=== PATIENT | female | born 1935 | race Caucasian/White ===

== ENCOUNTER 2017-07-07 07:10 | Inpatient (IN) | payer BC ==
[2017-06-28 12:06] VITALS: BMI 26.3
[2017-07-07] MEDS ORDERED: THROMBIN (BOVINE) 5,000 UNIT VIAL TP ONE (08:56)
[2017-07-07] MEDS ORDERED: BUPIVACAINE HCL/PF 2.5 MG/ML - 30 ML VIAL IJ ONE ×2 (09:02→09:04)
--- NOTE | 2017-07-07 09:02 | HP ---
History & Physical Update - History History: No Change - Physical Physical: No Change - Assessment Assessment: No Change - Plan Plan: No Change (Patient cleared for surgery by pcp on 06/21/17)
[2017-07-07] MEDS ORDERED: LIDOCAINE 1%/EPI 1:100000 (20 ML MULTI DOSE VIAL) ONE (09:04)
[2017-07-07] MEDS ORDERED: MIDAZOLAM HCL 2 MG/2 ML SINGLE DOSE VIAL ONE ×2 (09:09→10:42)
[2017-07-07] MEDS ORDERED: DEXAMETHASONE SOD PHOSPHATE 4 MG/1 ML VIAL ONE (09:10)
[2017-07-07] MEDS ORDERED: ONDANSETRON 4 MG/2 ML VIAL ONE ×2 (09:10→12:29)
[2017-07-07] MEDS ORDERED: ceFAZolin SODIUM 1 GM VIAL ONE (09:10)
[2017-07-07] MEDS ORDERED: BUPIVACAINE HCL/PF 0.5% (5MG/ML) 10 ML VIAL ONE (09:14)
[2017-07-07] MEDS ORDERED: LIDOCAINE 1%/EPI 1:100000 (50 ML MULTI DOSE VIAL) INF ONE (10:00)
[2017-07-07] MEDS ORDERED: BUPIVACAINE HCL/PF 0.25% (2.5MG/ML) 10 ML VIAL IJ ONE (10:15)
[2017-07-07] MEDS ORDERED: ONDANSETRON 4 MG/2 ML VIAL IVPUSH PRN (10:50)
[2017-07-07] MEDS ORDERED: LACTATED RINGERS SOLUTION 1,000 ML IV SCH ×2 (11:00→12:45)
[2017-07-07] MEDS ORDERED: LABETALOL HCL 5 MG/1 ML (100MG/20 ML VIAL) ONE (11:31)
[2017-07-07] MEDS ORDERED: diazePAM CARPU-JECT 10 MG/2 ML DISP.SYRIN IVPUSH PRN (12:43)
[2017-07-07] MEDS ORDERED: ONDANSETRON 4 MG/2 ML VIAL IVPB PRN (12:43)
--- NOTE | 2017-07-07 12:43 | OP ---
Operative Note - Note: Operative Date: 07/07/17 Pre-Operative Diagnosis: spondylolisthesis Operation: posterior lumbar decompression/fusion/instrumentation of L4-L5, transformanial lumbar interbody fuison L4-5 with allograft and neuromonitoring Surgeon: Roger Grant Building Maintenance Repairer: Lalitha Parekh Anesthesiologist/OCCUPATIONAL HEALTH SPECIALIST: Fe Beatty Anesthesia: Spinal Estimated Blood Loss (mls): 30 Fluid Volume Replaced (mls): 1,400 Operative Report Dictated: Yes
--- NOTE | 2017-07-07 13:27 | SURG ---
Surgery Supervisor Word Processing Note Supervisor Word Processing: Lalitha Parekh PA-C Date of Service: 07/07/17 Diagnosis: spondylolisthesis Procedure: posterior lumbar decompression/fusion/instrumentation of L4-L5, transformanial lumbar interbody fuison L4-5 with allograft and neuromonitoring I was present for the entirety of the operative procedure. For further detail, please refer to operative report. Visit type - Case Type Case Type: Scheduled Admission - Emergency Emergency Visit: No - New patient This patient is new to me today: Yes Date on this admission: 07/07/17 - Critical Care Critical Care patient: No
[2017-07-07] MEDS ORDERED: ACETAMINOPHEN 325 MG TABLET (FP) ONE (13:41)
[2017-07-07] MEDS ORDERED: traMADol HCL 50 MG TABLET ONE (13:42)
[2017-07-07] MEDS: ACETAMINOPHEN 325 MG TABLET (FP) PO SCH ×3 (13:54→20:34)
[2017-07-07] MEDS: traMADol HCL 50 MG TABLET PO SCH ×3 (13:54→20:34)
--- NOTE | 2017-07-07 16:19 | OP ---
DATE OF OPERATION: 07/07/2017 PREOPERATIVE DIAGNOSES: 1. Spondylolisthesis L4-5. 2. Spinal stenosis. POSTOPERATIVE DIAGNOSES: 1. Spondylolisthesis L4-5. 2. Spinal stenosis. PROCEDURE PERFORMED: 1. Transforaminal lumbar interbody fusion. 2. Placement of instrumentation. 3. Hemilaminectomy. SURGEON: Roger Grant MD CERTIFIED MEDICATION TECHNICIAN: GILSON Silvestre. ESTIMATED BLOOD LOSS: 50 mL. INTRAVENOUS FLUIDS: Per anesthesia. COMPLICATIONS: None. DISPOSITION: The patient was brought to the PACU in stable condition. INDICATIONS FOR SURGERY: Ms. Boswell is an 82-year-old female who has been suffering from pain from her back down to her legs. X-rays and MRI were complicated. It was noted that she had spondylolisthesis at L4-5 contributing to a stenosis at that level. She had gone through an exhaustive course of treatment for this which included medications, physical therapy, as well as injections. Unfortunately, her pain continued to persist in spite of all this. At this point the risks benefits, and alternatives were discussed and the patient consented to surgery, DESCRIPTION F PROCEDURE: The patient was brought to the operating room by the anesthesia staff. After appropriate patient identification was performed spinal anesthesia was given. The patient was placed prone on to the OR table. She was able to position herself to avoid all bony prominences. The C-arm was brought in and the L4 and L5 pedicles were marked off. Then 10 mL of lidocaine with epinephrine was injected into her back at this time. Her back was prepped and draped in a sterile manner. At this point, a time-out was completed. Incision was made bilaterally over the L4-L5 pedicles. Dissection was carried down to the fascia and the fascia was then split open at this time. Trocars were advanced to above the L4 and L5 pedicles. Through the trocars, wire was inserted. Over the wire a tap was performed and the screws were inserted. On the left hand side retractor blades were set up to expose the L4-5 facet joint. The facet joint was removed. The disc was entered using a series of pituitaries, Kerrisons, and curettes. A discectomy was completed. The endplates were decorticated at this t time. Bone graft was laid down. A cage-filled bone graft was placed in. Tulip heads were placed over the screws. A chely was measured and placed in. Caps were placed on. Compression and final tightening was performed. On the right hand side a chely was measured and placed in. The caps were placed on. Compression was applied. AP and lateral x-rays confirmed the instrumentation to be in good condition. All bleeding was well controlled at this time. The fascia was closed with a No. 1 Vicryl suture. Exparel was injected. The subcutaneous tissues were closed with 2-0 Vicryl. The skin was closed with 3-0 Monocryl suture. Dermabond was applied. Steri-Strips were applied. Sterile dressing was applied. The patient was placed supine on the OR bed and brought to the PACU in stable condition. Sandie VALENCIA/[id number]
[2017-07-07] MEDS: CEFAZOLIN 1 GM/D5W 50 ML IVPB SCH (18:32)
[2017-07-07] MEDS: morphine CARPU-JECT 2 MG/1 ML DISP.SYRIN IVPUSH PRN (19:33)
[2017-07-07] MEDS: TIMOLOL 0.5% OPHTHALMIC SOL 5 ML BOTTLE OS SCH (21:05)
[2017-07-07] MEDS ORDERED: LATANOPROST 0.005% OPHTH SOLN 2.5ML BOTTLE OS SCH (22:00)
[2017-07-07] MEDS ORDERED: ATORVASTATIN CA 40 MG TABLET (FP) PO SCH (22:00)
[2017-07-07] MEDS ORDERED: diazePAM 2 MG TABLET PO SCH (22:00)
[2017-07-08] MEDS: CEFAZOLIN 1 GM/D5W 50 ML IVPB SCH (01:36)
[2017-07-08] MEDS: ACETAMINOPHEN 325 MG TABLET (FP) PO SCH ×3 (02:14→13:36)
[2017-07-08] MEDS: traMADol HCL 50 MG TABLET PO SCH ×3 (02:14→13:37)
[2017-07-08] MEDS: morphine CARPU-JECT 2 MG/1 ML DISP.SYRIN IVPUSH PRN (06:32)
[2017-07-08] MEDS ORDERED: LEVOTHYROXINE NA 75 MCG TABLET (FP) PO SCH (07:00)
[2017-07-08 08:01] LABS: MCH 27.5 pg (25.7-33.7); MCHC 32.3 g/dl (32.0-36.0); MEAN CELL VOLUME 85.1 fl (80-96); MEAN PLT VOLUME 9.1 fl (7.5-11.1); PLATELET COUNT 170 K/MM3 (134-434); RDW 13.9 % (11.6-15.6); WHITE BLOOD COUNT 9.6 K/mm3 (4.0-10.8)
[2017-07-08] MEDS ORDERED: KETOROLAC TROMETHAMINE 15 MG/ML VIAL IVPUSH ONE (08:14)
[2017-07-08 08:23] LABS: ANION GAP 6 (8-16); CALCIUM 8.3 mg/dl (8.4-10.2); CO2 26 mmol/L (22-28); GLUCOSE,RANDOM 135 mg/dl (74-106)
--- NOTE | 2017-07-08 08:36 | PN ---
Progress Note (short form) - Note Progress Note: Pt states that she is having back pain at her incisional site. No leg/numbness to her lower extremities. OOB to chair/bedside commode with assistance. Vital Signs Period Temp Pulse Resp BP Sys/Malik Pulse Ox Last 24 Hr 97.8 F-99.1 F 71-92 13-25 133-176/46-100 93-100 GEN: A&0x3, NAD CV: RRR Lungs: CTA b/l ABD: soft, non-distended, non-tender LE: no calf tendnerness or swelling noted b/l. SCDs in place. Neuro: 5/5 dorsi/plantar/EHL flexion Back:dressing changed, quarter sized amount of blood on dressing(changed at 2 am because of some bloody drainage to the incision) small amount of ecchymosis to the left incision with dried blood on the steri-strips. All steri-strips intact, no active bleeding to both incisions. CBC, BMP 07/08/17 07:45 07/08/17 07:45 A/P: 82 yo female s/p Lumbar fusion of L4-L5, POD#1 Pt having pain this am, willl add toradol x1 for better pain control. Continue with ultram/tylenol scheduled for pain. Will change valium to prn as needed, which may also help with her pain possible spasm symptoms Awaiting PT consult to assess possible discharge needs Lumbar xray today S/w social media developer regarding discharge planning, she has been in contact with the anita daughter.
[2017-07-08] MEDS ORDERED: diazePAM 2 MG TABLET PO PRN (08:37)
[2017-07-08] MEDS ORDERED: HYDROCHLOROTHIAZIDE 12.5 MG CAPSULE (FP) PO SCH (10:00)
[2017-07-08] MEDS ORDERED: LOSARTAN POTASSIUM 50 MG TABLET (FP) PO SCH (10:00)
[2017-07-08] MEDS ORDERED: PATIENT'S OWN MEDICATION (NON-FORMULARY) (Losartan/Hydrochlorothiazide [Losartan-Hctz 100- PO SCH (10:00)
[2017-07-08] MEDS ORDERED: UBIDECARENONE 200 MG PO SCH (10:00)
[2017-07-08] MEDS: TIMOLOL 0.5% OPHTHALMIC SOL 5 ML BOTTLE OS SCH (10:01)
[2017-07-08 10:14] LABS: CREATININE 0.8 mg/dl (0.6-1.3)
--- NOTE | 2017-07-08 10:42 | PN ---
Progress Note (short form) - Note Progress Note: ANESTHESIA POSTOP: 82 yo female, POD #1 from lumbar fusion. Patient doing well. Ambulating. Tolerating PO. No nausea. Pain adequately controlled.
[2017-07-08] MEDS ORDERED: DOCUSATE SODIUM 100 MG CAPSULE (FP) PO PRN (13:54)
[2017-07-08 14:04] VITALS: BP 112/47; PULSE 76; TEMP 98.9
--- NOTE | 2017-07-08 15:38 | DS ---
"Physical Examination Vital Signs: Vital Signs Temperature 98.9 F 07/08/17 14:03 Pulse Rate 76 07/08/17 14:03 Respiratory Rate 16 07/08/17 14:03 Blood Pressure 112/47 07/08/17 14:03 O2 Sat by Pulse Oximetry (%) 99 07/08/17 14:03 Constitutional: Yes: Calm Cardiovascular: Yes: WNL, Regular Rate and Rhythm Respiratory: Yes: WNL, Regular, CTA Bilaterally Gastrointestinal: Yes: WNL, Normal Bowel Sounds, Soft Extremities: Yes: WNL. No: Calf Tenderness Edema: No Peripheral Pulses WNL: Yes Peripheral Pulses: Left Doralis Pedis: 2+, Right Dorsalis Pedis: 2+ Wound/Incision: Yes: Clean/Dry, Steri Strips (intact), Other (mild ecchymosis to left incision. No masses/soft.) Neurological: Yes: WNL, Alert, Oriented ...Motor Strength: WNL, LUE, LLE, RUE, RLE Psychiatric: Yes: WNL, Alert, Oriented Labs: CBC, BMP 07/08/17 07:45 07/08/17 07:45 Discharge Summary Reason For Visit: SPONDYLOLISTHESIS Condition: Stable - Instructions Diet, Activity, Other Instructions: Dr. Grant's Discharge Instructions Dear Rosi, Regular diet as tolerated. No bending and or twisting at the waist. No lifting greater than 5 pounds. Follow-up with your surgeon in two weeks. Keep area clean and dry. May remove dressing in two (2) days and replace with clean gauze and occlusive dressing such as a tegaderm. NO BATHS. You may shower starting two (2) days after your surgery. When showering, leave the occlusive(plastic) dressing in place and change if it appears wet. Avoid direct water stream onto your incision. If you develop fever, drainage from your incision please call your surgeon. ZAFAR WHITE LEAD FILTERER This report was requested by: Eric Jauregui | Reference #: [id number] Follow-up Referred to following clinics/specialists for follow-up care: Roger Grant MD [facility]/[address], [address] [place] [id number] [phone] Disposition: [facility] - Home Medications Comprehensive Discharge Medication List: Ambulatory Orders Aspirin [ASA -] 81 mg PO DAILY 06/28/17 Atorvastatin Ca [Lipitor] 40 mg PO HS 06/28/17 Ca/D3/Mag#11/Zinc/Executive Pilot/Sandoval/Bor [Caltrate 600+D Plus Tablet] 1 each PO DAILY Cholecalciferol (Vitamin D3) [Vitamin D3 -] 1,000 unit PO DAILY 06/28/17 Flaxseed Oil [[place]-3 Flaxseed Oil] 1,000 mg PO 06/28/17 Latanoprost 0.005% Eye Drops [Xalatan 0.005% Eye Drops -] 1 drop OS HS 06/28/17 Levothyroxine [Synthroid -] 75 mcg PO DAILY 06/28/17 Losartan/Hydrochlorothiazide [Losartan-Hctz 100-12.5 mg Tab] 1 each PO DAILY Multivitamin [One Daily] 1 tab PO DAILY 06/28/17 Timolol 0.5% [Timoptic 0.5%] 1 drop OS BID 06/28/17 Ubidecarenone [Co Q-10] 200 mg PO DAILY 06/28/17 Orphenadrine Citrate 100 mg PO BID PRN #60 tablet.er 07/07/17 Tramadol HCl 50 mg PO Q6H PRN #30 tablet MDD 4 07/07/17"
== END 2017-07-08 17:12 | DRG 460 ==
LOC: FM/S 07:10
PROVIDERS: ADMIT Orthopaedic Surgery Orthopaedic Surgery of the Spine; ATTEND Orthopaedic Surgery Orthopaedic Surgery of the Spine
PROC: 0SB20ZZ Excision of Lumbar Vertebral Disc, Open Approach (ICD-10-PCS; 2017-07-07)
PROC: 0SG00AJ Fusion of Lumbar Vertebral Joint with Interbody Fusion Device, Posterior Approach, Anterior Column, Open Approach (ICD-10-PCS; principal; 2017-07-07 09:19)
DX: M43.16 Spondylolisthesis, lumbar region (principal); M48.06 Spinal stenosis, lumbar region; I10 Essential (primary) hypertension
CPT/HCPCS: 36415; 72100-TC; 76001-TC; 80048; 85027; 94010; 94760; 97116-GP; 97162-GP